=== PATIENT | female | born 1995 | race Caucasian/White ===

== ENCOUNTER 2020-08-06 16:23 | Outpatient (CLI) | payer OTHER ==
[~2020-08-06 16:23] MED LIST: BENTYL 20MG TAB20 MG PO; CLARITIN10 MG PO; COLACE 100MG C100 MG PO; IBUPROFEN600 MG PO; MACROBID 100 M100 MG PO; PRENATAL VITAM1 EAC8 PO; REGLAN10 MG PO; TAMIFLU 75 MG C75 MG PO; ZANTAC150 MG PO; ZOFRAN4 MG PO
[2020-10-28] MEDS ORDERED: DOCUSATE SODIU100 MG PO (11:18)
[2020-10-28] MEDS ORDERED: FERRO-TIME325 MG PO (11:18)
[2020-10-28] MEDS ORDERED: IBUPROFEN800 MG PO (11:18)
[2020-10-28] MEDS ORDERED: TYLENOL EXTRA500 MG PO (11:18)
== END 2020-08-06 17:27 | disposition home or self-care (01) ==
LOC: GENOP 16:23
DX: O36.8120 Decreased fetal movements, second trimester, not applicable or unspecified (principal); O99.891 Other specified diseases and conditions complicating pregnancy; R10.2 Pelvic and perineal pain; O42.912 Preterm premature rupture of membranes, unspecified as to length of time between rupture and onset of labor, second trimester; Z3A.27 27 weeks gestation of pregnancy

== ENCOUNTER 2020-10-28 05:50 | Inpatient (IN) | payer OTHER ==
[2020-10-28 07:19] LABS: HEMOGLOBIN 9.6 gm/dl (12.3-15.3); RED BLOOD COUNT 3.47 M/UL (4.00-5.10); WHITE BLOOD COUNT 9.2 K/UL (4.5-11.0)
[2020-10-28] MEDS ORDERED: FERRO-TIME325 MG PO (11:18)
[2020-10-28] MEDS ORDERED: IBUPROFEN800 MG PO (11:18)
[2020-10-28] MEDS ORDERED: DOCUSATE SODIU100 MG PO (11:18)
[2020-10-28] MEDS ORDERED: TYLENOL EXTRA500 MG PO (11:18)
[2020-10-29 07:09] LABS: HEMOGLOBIN 10.2 gm/dl (12.3-15.3)
== END 2020-10-29 15:21 | disposition home or self-care (01) | DRG 807 ==
LOC: OB 05:50
PROVIDERS: Obstetrics & Gynecology; ADMIT Obstetrics & Gynecology
PROC: 10E0XZZ Delivery of Products of Conception, External Approach (ICD-10-PCS; principal; 2020-10-28)
PROC: 10907ZC Drainage of Amniotic Fluid, Therapeutic from Products of Conception, Via Natural or Artificial Opening (ICD-10-PCS; 2020-10-28)
PROC: 3E033VJ Introduction of Other Hormone into Peripheral Vein, Percutaneous Approach (ICD-10-PCS; 2020-10-28)
PROC: 0UQMXZZ Repair Vulva, External Approach (ICD-10-PCS; 2020-10-28)
PROC: 4A1HXCZ Monitoring of Products of Conception, Cardiac Rate, External Approach (ICD-10-PCS; 2020-10-28)
DX: O71.82 Other specified trauma to perineum and vulva (principal); Z37.0 Single live birth; Z3A.39 39 weeks gestation of pregnancy; Z20.822 Contact with and (suspected) exposure to COVID-19
CPT/HCPCS: 36415; 36600; 81001; 82800; 85014; 85018; 85025; 90471; 90715; J2590; J3010; J7120; U0002

== ENCOUNTER 2021-01-10 14:50 | Emergency (ER) | payer OTHER ==
[~2021-01-10 14:50] MED LIST changes: +DOCUSATE SODIU100 MG PO; +FERRO-TIME325 MG PO; +IBUPROFEN800 MG PO; +TYLENOL EXTRA500 MG PO
[2021-01-10 16:39] LABS: HEMOGLOBIN 12.1 gm/dl (12.3-15.3); RED BLOOD COUNT 4.24 M/UL (4.00-5.10); WHITE BLOOD COUNT 5.6 K/UL (4.5-11.0)
[2021-01-10 16:48] LABS: BUN/CREATININE RATIO 16 (0-10)
[2021-01-10] MEDS ORDERED: LODINE CAP 300300 MG PO (20:19)
[2021-01-10] MEDS ORDERED: ZOFRAN ODT 4 MG4 MG PO (20:19)
[2021-01-13 18:12] LABS: CHLAMYDIA TRACHOMATIS, NAA Negative (Negative); NEISSERIA GONORRHOEAE, NAA Negative (Negative)
== END 2021-01-10 20:27 | disposition home or self-care (01) ==
LOC: ER1 14:50
PROVIDERS: Physician Assistant Medical
DX: R10.31 Right lower quadrant pain (principal); R31.9 Hematuria, unspecified; R11.2 Nausea with vomiting, unspecified; Z20.822 Contact with and (suspected) exposure to COVID-19
CPT/HCPCS: 80053; 81001; 83690; 84703; 85025; 87086; 96374; 96375; 99284; J1885; J2405; J7030; Q9967; U0002

== ENCOUNTER 2021-06-24 10:33 | Emergency (ER) | payer OTHER ==
[~2021-06-24 10:33] MED LIST changes: +LODINE CAP 300300 MG PO; +ZOFRAN ODT 4 MG4 MG PO
[2021-06-24 11:50] LABS: HEMOGLOBIN 13.2 gm/dl (12.3-15.3); RED BLOOD COUNT 4.83 M/UL (4.00-5.10)
[2021-06-24 12:12] LABS: BUN/CREATININE RATIO 11 (0-10)
== END 2021-06-24 14:57 | disposition home or self-care (01) ==
LOC: ER1 10:33
PROVIDERS: Physician Assistant
DX: K05.219 Aggressive periodontitis, localized, unspecified severity (principal); I10 Essential (primary) hypertension
CPT/HCPCS: 64400; 70487; 80048; 85025; 99283; Q9967

== ENCOUNTER 2021-09-06 16:33 | Emergency (ER) | payer OTHER ==
[2021-09-06] MEDS ORDERED: ZOFRAN ODT 4 MG4 MG SL (17:01)
[2021-09-06] MEDS ORDERED: MEDROL TAB 4 MG4 MG PO (17:01)
== END 2021-09-06 17:10 | disposition home or self-care (01) ==
LOC: ER1 16:33
DX: M54.81 Occipital neuralgia (principal)
CPT/HCPCS: 99283

== ENCOUNTER 2022-03-02 20:16 | Emergency (ER) | payer OTHER ==
[~2022-03-02 20:16] MED LIST changes: +MEDROL TAB 4 MG4 MG PO; +ZOFRAN ODT 4 MG4 MG SL
[2022-03-02] MEDS ORDERED: IBUPROFEN600 MG PO (23:59)
== END 2022-03-03 00:02 | disposition home or self-care (01) ==
LOC: ER1 20:16
DX: M25.562 Pain in left knee (principal); G89.29 Other chronic pain
CPT/HCPCS: 73564; 99283